=== PATIENT | female | born 1995 | race African-American/Black ===

== ENCOUNTER 2018-11-28 07:59 | Emergency (ER) | payer OTHER, SELFPAY ==
[2018-11-28] MEDS ORDERED: Ondansetron PF 4 MG/2 ML Vial ONE (08:25)
[2018-11-28 10:11] LABS: Pregnancy Test - Urine (BHCG) Negative (Negative); Pregu Control Background? CLEAR/WHITE (CLR/WHITE); Pregu Control Bar Appear? YES (CONTROL BAR)
[2018-11-28 10:14] LABS: Bacteria/HPF 1+ HPF (None Seen); Bilirubin Negative (Negative); Blood, Urine 1+ (Negative); Clarity Clear (Clear); Glucose, Urine (Dipstick) Normal (Negative); Leukocyte Negative Leu/uL (Negative); Nitrite Negative (Negative); Protein, Urine (Dipstick) 10 mg/dL (Neg-Trace); RBC/HPF 0-3 HPF (0-3); Squamous Epithelial 0-3 HPF (0-3); Urobilinogen Normal mg/dL (Less than 2); WBC/HPF None Seen HPF (0-3)
== END 2018-11-28 10:40 | disposition home or self-care (01) ==
LOC: ERS 07:59
DX: R11.2 Nausea with vomiting, unspecified (principal); R19.7 Diarrhea, unspecified; R55 Syncope and collapse; F41.9 Anxiety disorder, unspecified; F32.9 Major depressive disorder, single episode, unspecified
CPT/HCPCS: 81003; 81015; 81025; 93005; 96361; 96372; 96374; J0500; J2405